=== PATIENT | female | born 1980 | race Native Hawaiian/Other Pacific Islander ===

== ENCOUNTER 2017-12-30 15:06 | Inpatient (IN) | payer OTHER ==
[2016-05-16 12:27] VITALS: BMI 28.7
[2017-12-30] MEDS ORDERED: ceFAZolin 1 GM in Sodium Chloride 0.9% 100 ML IVPB ONE (15:11)
[2017-12-30] MEDS ORDERED: Lactated Ringer's 1,000 ML IV SCH ×3 (15:15→23:49)
[2017-12-30] MEDS ORDERED: Oxytocin 30 units/LR 500ML 30 U/500 ML BAG IV ONE (15:16)
--- NOTE | 2017-12-30 15:26 | OBHP ---
Datetime: 12/30/2017 15:26 IP Adm Impression: Term, intrauterine IP Chief Complaint: Other
--- NOTE | 2017-12-30 15:28 | OBDS ---
MATERNAL INFORMATION Provider Comments: See operative note
[2017-12-30 16:09] LABS: BASO % 0.2 % (0.0-2.0); EOS % 0.6 % (0.0-4.0); HEMOGLOBIN 12.9 g/dL (12.0-16.0); LYMPH # 1.7 K/uL (1.0-4.3); LYMPH % 23.6 % (20.0-40.0); MEAN CELL VOLUME 90.4 fl (81.0-99.0); MEAN CORPUSCULAR HEMOGLOBIN 30.2 pg (27.0-31.0); MEAN CORPUSCULAR HGB CONC 33.4 g/dL (33.0-37.0); MEAN PLATELET VOLUME 8.5 fl (7.2-11.7); MONO # 0.5 K/uL (0.0-0.8); MONO % 7.2 % (0.0-10.0); NEUT # 4.9 K/uL (1.8-7.0); NEUT % 68.4 % (50.0-75.0); RBC 4.29 Mil/uL (3.80-5.20); RED CELL DISTRIBUTION WIDTH 14.3 % (11.5-14.5); WHITE BLOOD COUNT 7.2 K/uL (4.8-10.8)
[2017-12-30] MEDS ORDERED: ePHEDrine 50 mg/ml Inj ONE (17:31)
[2017-12-30] MEDS ORDERED: Morphine 1 mg/ml preservative-free Inj(Duramorph) ONE (17:31)
[2017-12-30] MEDS ORDERED: Triamcinolone Acetonide 40 mg/mL Inj IAA ONE (19:26)
[2017-12-30] MEDS ORDERED: Triamcinolone Acetonide 40 mg/mL Inj IM ONE (19:28)
[2017-12-30] MEDS ORDERED: Triamcinolone Acetonide 40 mg/mL Inj ONE (19:38)
[2017-12-30] MEDS ORDERED: DiphenhydrAMINE 50 mg/ml Inj IVP PRN ×2 (20:34→23:49)
--- NOTE | 2017-12-30 22:24 | OBHP ---
Datetime: 12/30/2017 15:26 IP Chief Complaint Other: Repeat c/section, non-reactive NST IP Admit Plan: Admit to unit; Initiate Section protocol Admit Comment, IP Provider: 37 yo patient w/IUP 38.[address] Karrie quinonez for emergency c/section due to non reactive NST. h/o IUGR. Denies LOF, CTX, VB,positive FM. no dizziness, headache, blurred vision, edema, chest pain, or urinary symptoms. Patient has scheduled c/section fo r 01/05/18. PNC: [facility] Dr Mccollum. 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 FMH: denies Meds: pnv Allergy: thimerosal Denies etoh, tobacco, drugs. PE: see PE tab TOCO: FHR 150, mod variability, 15x15, cat 1, no decels. A/P: 37 yo patient at IUP 38.4 weeks admitted for repeat c/section. non reactive NST. IUGR . - admit to unit - initiate c/section protocol (scheduled for 5 pm) - /maternal monitoring Case discussed with Dr Ocampo. Gabbie PGY 1. The patient was seen with the resident I agree with the note Pelvic Type - PN: Not Done Extremities - PN: Normal Abdomen - PN: Normal Back - PN: Normal Breast - PN: Normal Lungs - PN: Normal Heart - PN: Normal Thyroid - PN: Not Done Neurologic - PN: Normal HEENT - PN: Normal General - PN: Normal FHR - Baseline A Provider: 150 Membranes, Provider: Intact EGA AdmitDate IP: 38.3 Vital Signs Provider: Reviewed; Within Normal Limits IP Indication for Induction: Not Applicable NICHD Variability Prov Fetus A: Moderate 6-25bpm NICHD Accel Fetus A IP Provider: 15X15 FHR Category Provider Fetus A: Category I NICHD Decel Fetus A IP Provider: None Genitourinary Exam: Not Done DTRs - PN: Not Done
--- NOTE | 2017-12-30 23:24 | OP ---
PROCEDURE DATE: 12/30/2017 PREOPERATIVE DIAGNOSES: Intrauterine at 38 plus weeks, history of decreased growth, small for gestational age, nonreassuring nonstress test, and Maternal- Medicine consultation recommends delivery. POSTOPERATIVE DIAGNOSES: Intrauterine at 38 plus weeks, history of decreased growth, small for gestational age, nonreassuring nonstress test, and Maternal- Medicine consultation recommends delivery. OPERATION PERFORMED: Repeat low-flap transverse section. SURGEON: Mook Ocampo MD SHIPPING HAND: Maurizio Lennon MD. He was helpful in taking care of the patient, creating exposure, obtaining hemostasis, delivery of the infant, closure of the patient, and the procedure would not have been possible without his assistance. TYPE OF ANESTHESIA: Spinal. ANESTHESIA ADMINISTERED BY: Javier Silverman MD ESTIMATED BLOOD LOSS: 800 mL. URINE OUTPUT: Aguirre catheter put out approximately 300 mL of clear urine. INTRAVENOUS FLUID INTAKE: The patient received approximately 1 L of D5 LR intraoperatively. OPERATIVE FINDINGS: Baby girl, Apgars 9 and 9, weighing 2970 g and normal uterus, tubes, and ovaries were identified. DESCRIPTION OF PROCEDURE: After informed consent was obtained, the patient was taken to the operating room where she was given spinal anesthesia. She was then prepped and draped in normal sterile fashion with the leftward tilt. A Pfannenstiel skin incision was then made with the scalpel and carried down to the underlying layer of fascia. The fascia was nicked in the midline. The fascial incision was then extended laterally with the curved Bradshaw scissors. The superior aspect of the fascial incision was then grasped with Helen clamps, elevated up, and the rectus muscles were dissected off using both sharp and blunt dissection. Attention was then turned to the inferior aspect of the fascial incision, which in a similar fashion was grasped with Helen clamps, elevated up, and the rectus muscles were dissected off using both sharp and blunt dissection. The rectus muscles were then in the midline, the peritoneum identified and entered sharply with the Metzenbaum scissors. The peritoneal incision was then extended superiorly and inferiorly with good visualization of the bladder. The bladder blade was inserted. The vesicouterine peritoneum was identified and entered sharply with the Metzenbaum scissors. The incision was then extended laterally and the bladder flap was created digitally. The bladder blade was then readjusted and a low-transverse incision was made with the scalpel. The uterine incision was then extended laterally with the bandage scissors. The infant's head was delivered atraumatically. The nose and mouth were suctioned with DeLee suction trap. The cord was clamped and cut and the was handed off to awaiting pediatricians. The placenta was then removed manually. The uterus was exteriorized and cleared off all clots and debris. The uterine incision was then repaired with 0 Vicryl in a running locked fashion. A second layer of the same suture was used to obtain an excellent hemostasis. The abdomen was then copiously irrigated and the irrigant was removed with the suction device. The uterus was returned to the abdomen. The gutters were cleared of all clots and debris. The uterine incision was reexamined and noted to be hemostatic. The peritoneum was then closed with 2-0 Vicryl in a running fashion. The muscle was reapproximated with 0 Vicryl in an interrupted fashion. The fascia was closed with 0 Vicryl in a running fashion. The skin was closed with 4-0 on a Guillaume needle. All sponge, lap, needle, and instrument counts were correct x2 and the patient was taken to the recovery room in awake and stable condition. Mook Ocampo MD
[2017-12-31 08:32] LABS: HEMOGLOBIN 13.3 g/dL (12.0-16.0); MEAN CELL VOLUME 90.6 fl (81.0-99.0); MEAN CORPUSCULAR HEMOGLOBIN 30.3 pg (27.0-31.0); MEAN CORPUSCULAR HGB CONC 33.5 g/dL (33.0-37.0); RBC 4.39 Mil/uL (3.80-5.20); RED CELL DISTRIBUTION WIDTH 14.2 % (11.5-14.5); WHITE BLOOD COUNT 12.6 K/uL (4.8-10.8)
[2017-12-31] MEDS: Simethicone 80 mg Chewtab PO SCH ×3 (09:33→22:47)
[2018-01-01] MEDS: Simethicone 80 mg Chewtab PO SCH ×4 (04:14→22:03)
--- NOTE | 2018-01-01 17:26 | OBPPN ---
Datetime: 01/01/2018 17:21 PP Pain Prov: Within normal limits PP Nausea Prov: Denies PP Flatus Prov: Yes PP Breasts Prov: Normal PP Heart Prov: Normal PP Lungs Prov: Normal PP Abdomen/Uterus Prov: Normal PP Extremities Prov: Normal PP C/S Incision Prov: Normal PP Progress Prov: Normal PP Comments Phys Exam Prov: hgb 13.3 Breasts slightly engorged PP Impression Prov: Normal progression PP Plan Prov: Continue present management PP Progress Note Prov: s:no c/o. Pain well controlled with medication. Tolerating regular diet. I: Postop day2 s/p CD doing well P: Routine post and postop care. IP PP Procedures: None Vital Signs Provider PP: Within Normal Limits
[2018-01-02] MEDS: Simethicone 80 mg Chewtab PO SCH ×2 (04:23→12:07)
--- NOTE | 2018-01-02 10:50 | OBPPN ---
Datetime: 01/02/2018 10:46 PP Pain Prov: Within normal limits PP Nausea Prov: Denies PP Flatus Prov: Yes PP BM Prov: Yes PP Breasts Prov: Normal PP Heart Prov: Normal PP Lungs Prov: Normal PP Abdomen/Uterus Prov: Normal PP Lochia Prov: Normal PP Vulva/Perineum Prov: Normal PP CVA Tenderness Prov: Normal PP Extremities Prov: Normal PP C/S Incision Prov: Normal PP Progress Prov: Normal PP Comments Phys Exam Prov: Abdomen soft, nontender, nondistended Incision clean, dry, intact, slight bruising around incision Uterus firm, below umbilicus No deep calf Tenderness bilaterally PP Impression Prov: Normal progression PP Plan Prov: Discharge PP Progress Note Prov: Postoperative day #3 status post , patient recovering well Discharge patient home today with postop instructions Follow-up in office in 1 week for incision check All patient questions answered IP PP Procedures: None Vital Signs Provider PP: Reviewed; Within Normal Limits
--- NOTE | 2018-01-02 10:52 | OBDCSUM ---
Datetime: 01/02/2018 10:49 Discharged to, Provider: Home Follow up at, Provider: Veda Awan Instr Activity: Normal activity Disch Instr Diet: Regular Discharge Instructions, Provider: Routine instructions given Discharge Diagnosis, Provider: Term Delivered Discharge Time: 01/02/2018 10:49 Follow up in weeks, Provider: 1 week Disch Referrals: None Contraception discussed, Prov: Yes Disch Activity Restrictions: No lifting; Nothing in vagina - [place], tampons, douche
[2018-01-02 19:23] VITALS: BP 109/70; PULSE 77; RESP 18; TEMP 97.3; O2SAT 100
== END 2018-01-02 14:30 | disposition home or self-care (01) | DRG 765 ==
LOC: H.L&D 15:13 → H.OB/GYN 23:22
PROVIDERS: ADMIT Obstetrics & Gynecology Gynecology; ATTEND Obstetrics & Gynecology Gynecology
PROC: 10D00Z1 Extraction of Products of Conception, Low, Open Approach (ICD-10-PCS; principal; 2017-12-30)
PROC: 4A1HXCZ Monitoring of Products of Conception, Cardiac Rate, External Approach (ICD-10-PCS; 2017-12-30)
DX: O76 Abnormality in fetal heart rate and rhythm complicating labor and delivery (principal); O36.5930 Maternal care for other known or suspected poor fetal growth, third trimester, not applicable or unspecified; Z37.0 Single live birth; Z3A.38 38 weeks gestation of pregnancy